=== PATIENT | female | born 1970 | race Caucasian/White ===

== ENCOUNTER 2016-07-30 17:26 | Emergency (ER) | payer BC ==
[~2016-07-30] VITALS: Ht 157.5 cm; Wt 51.6 kg
[~2016-07-30 17:26] MED LIST: LORTA5 PO
[2016-07-30 17:32] VITALS: BP 163/111; PULSE 104; RESP 16; TEMP 98.3; O2SAT 99
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
--- NOTE | 2016-07-30 18:19 | RADHPO ---
EXAM DATE/TIME: 07/30/2016 17:59 [facility] COMPARISON: No previous studies available for comparison. INDICATIONS : Bilateral posterior and inferior rib pain post slip and fall. MEDICAL HISTORY : None. SURGICAL HISTORY : None. ENCOUNTER: Initial ACUITY: 1 day PAIN SCORE: 8/10 LOCATION: Bilateral chest FINDINGS: 5 views of the ribs and chest. Old healed lateral left ninth and 10th rib fractures. No acute fractur e identified. No evidence of pneumothorax. No evidence of pleural effusion. CONCLUSION: No acute fracture identified. Los Briones MD on July 30, 2016 at 18:15 Board Certified Radiologist. This report was verified electronically.
[2016-07-30] MEDS ORDERED: HYDR-3533 PO (18:38)
== END 2016-07-30 18:55 | disposition home or self-care (01) ==
LOC: PHED 17:26
DX: S20.219A Contusion of unspecified front wall of thorax, initial encounter (principal); Y04.8XXA Assault by other bodily force, initial encounter; I10 Essential (primary) hypertension
CPT/HCPCS: 71111; 99283